=== PATIENT | male | born 1975 | race Caucasian/White ===

== ENCOUNTER 2017-05-15 13:05 | Emergency (ER) | payer SELFPAY ==
--- NOTE | 2017-05-15 14:22 | RAD ---
RIGHT RIBS WITH PA CHEST: Date: 05/15/17 HISTORY: Emergency exam. Cough. Rib pain. COMPARISON: None. FINDINGS: No displaced rib fracture. Lungs are unremarkable. No pneumothorax. IMPRESSION: Unremarkable exam. No displaced rib fracture. POS: [facility]
== END 2017-05-15 14:17 | disposition home or self-care (01) ==
LOC: SCSER 13:05
DX: S29.011A Strain of muscle and tendon of front wall of thorax, initial encounter (principal); I10 Essential (primary) hypertension; Z79.899 Other long term (current) drug therapy; X58.XXXA Exposure to other specified factors, initial encounter

== ENCOUNTER 2022-04-01 19:30 | Outpatient (CLI) | payer OTHER | END 2022-04-01 19:31 | disposition home or self-care (01) | LOC: SLEEPLAB 19:30 | PROVIDERS: ATTEND Otolaryngology Otolaryngic Allergy | DX: G47.33 Obstructive sleep apnea (adult) (pediatric) (principal) | CPT/HCPCS: 95811 ==